=== PATIENT | male | born 1980 | race Caucasian/White ===

== ENCOUNTER 2018-07-05 02:10 | Outpatient (CLI) | payer OTHER | END 2018-07-05 02:11 | disposition critical access hospital (66) | LOC: EMS 02:10 | PROVIDERS: ATTEND Surgery | DX: M54.2 Cervicalgia (principal); M54.9 Dorsalgia, unspecified; V59.9XXA Occupant (driver) (passenger) of pick-up truck or van injured in unspecified traffic accident, initial encounter; Y92.413 State road as the place of occurrence of the external cause | CPT/HCPCS: A0425; A0429 ==

== ENCOUNTER 2018-07-05 02:29 | Emergency (ER) | payer OTHER ==
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
[2018-07-05 03:04] LABS: MUDS CUTOFF CONCENTRATIONS CUTOFF CONC BELOW:
[2018-07-05 03:05] LABS: BILIRUBIN,URINE NEGATIVE (NEGATIVE); GLUCOSE, URINE (UA) NEGATIVE (NEGATIVE); KETONES,URINE (UA) NEGATIVE (NEGATIVE); LEUKOCYTE ESTERASE, URINE NEGATIVE (NEGATIVE); NITRITE,URINE NEGATIVE (NEGATIVE); OCCULT BLOOD,URINE NEGATIVE (NEGATIVE); PROTEIN,URINE NEGATIVE (NEGATIVE); UROBILINOGEN,URINE 0.2 (NORMAL) E.U./dL (NORMAL)
[2018-07-05 03:06] LABS: CLARITY,URINE CLEAR (CLEAR)
[2018-07-05] MEDS ORDERED: OLANZapine 10 MG VIAL IM STA (03:06)
[2018-07-05 03:11] LABS: BASOPHILS # (AUTO) 0.6 10^3/uL (0.0-0.1); BASOPHILS % (AUTO) 6.9 %; EOSINOPHILS # (AUTO) 0.2 10^3/uL (0.0-0.7); EOSINOPHILS % (AUTO) 1.9 %; HGB - HEMOGLOBIN 16.3 g/dL (14.0-18.0); LYMPHOCYTES # (AUTO) 2.6 10^3/uL (1.5-3.5); LYMPHOCYTES % (AUTO) 31.5 %; MEAN CORPUSCULAR HEMOGLOBIN 30.7 pg (27.0-31.0); MEAN CORPUSCULAR HGB CONC 34.3 g/dL (32.0-36.0); MEAN CORPUSCULAR VOLUME 89.3 fL (80.0-94.0); MEAN PLATELET VOLUME 7.9 fL (7.4-11.4); MONOCYTES # (AUTO) 0.4 10^3/uL (0.0-1.0); MONOCYTES % (AUTO) 5.1 %; NEUTROPHILS # (AUTO) 4.5 10^3/uL (1.5-6.6); NEUTROPHILS % (AUTO) 54.6 %; PLT - PLATELET COUNT 253 10^3/uL (130-450); RED BLOOD COUNT 5.32 10^6/uL (4.70-6.10); RED CELL DISTRIBUTION WIDTH 13.5 % (12.0-15.0); WHITE BLOOD COUNT 8.2 x10^3/uL (4.8-10.8)
[2018-07-05 03:16] LABS: AMPHETAMINE SCREEN,URINE NEGATIVE (NEGATIVE); BENZODIAZEPINES SCREEN, URINE NEGATIVE (NEGATIVE); COCAINE SCREEN URINE NEGATIVE (NEGATIVE); METHADONE SCREEN, URINE NEGATIVE (NEGATIVE); METHAMPHETAMINES SCREEN, URINE NEGATIVE (NEGATIVE); OPIATE SCREEN, URINE NEGATIVE (NEGATIVE); OXYCODONE SCREEN, URINE NEGATIVE (NEGATIVE); PROPOXYPHENE SCREEN, URINE NEGATIVE (NEGATIVE); TRICYCLIC ANTIDEPRESSANT,URINE NEGATIVE (NEGATIVE)
[2018-07-05 03:20] LABS: ALBUMIN 4.7 g/dL (3.2-5.5); ALBUMIN/GLOBULIN RATIO 1.4 (1.0-2.2); BILIRUBIN,TOTAL 0.4 mg/dL (0.2-1.0); CALCIUM 9.1 mg/dL (8.5-10.3); TOTAL PROTEIN 8.1 g/dL (6.7-8.2)
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
[2018-07-05 05:41] VITALS: BP 126/78
== END 2018-07-05 05:52 | disposition home or self-care (01) ==
LOC: ED 02:29
DX: F10.120 Alcohol abuse with intoxication, uncomplicated (principal); M54.2 Cervicalgia; M54.9 Dorsalgia, unspecified; V49.9XXA Car occupant (driver) (passenger) injured in unspecified traffic accident, initial encounter
CPT/HCPCS: 36415; 51701; 70450; 72125; 80053; 80306; 80320; 81001; 81003; 83690; 85025; 87086; 96372; 99283; 99285

== ENCOUNTER 2022-02-10 23:26 | Outpatient (CLI) | payer SELFPAY | END 2022-02-10 23:59 | disposition critical access hospital (66) | LOC: EMS 23:26 | DX: R10.31 Right lower quadrant pain (principal) | CPT/HCPCS: A0425; A0427 ==

== ENCOUNTER 2022-02-10 23:41 | Emergency (ER) | payer SELFPAY ==
[2022-02-10 23:58] VITALS: BP 127/78
== END 2022-02-11 00:11 | disposition home or self-care (01) ==
LOC: EDUNIT# → ED 23:41
DX: Z53.8 Procedure and treatment not carried out for other reasons (principal)

== ENCOUNTER 2022-02-11 00:09 | Emergency (ER) | payer SELFPAY ==
[2022-02-11] MEDS ORDERED: KETOROLAC 30 MG/ML VIAL IVP STA (01:11)
[2022-02-11 01:48] LABS: BASOPHILS % (AUTO) 0.4 %; EOSINOPHILS % (AUTO) 0.2 %; HCT - HEMATOCRIT 43.1 % (42.0-52.0); HGB - HEMOGLOBIN 14.6 g/dL (14.0-18.0); LYMPHOCYTES # (AUTO) 0.3 10^3/uL (1.5-3.5); LYMPHOCYTES % (AUTO) 7.1 %; MEAN CORPUSCULAR HEMOGLOBIN 30.4 pg (27.0-31.0); MEAN CORPUSCULAR HGB CONC 33.9 g/dL (32.0-36.0); MEAN CORPUSCULAR VOLUME 89.6 fL (80.0-94.0); MEAN PLATELET VOLUME 9.8 fL (7.4-11.4); MONOCYTES # (AUTO) 0.3 10^3/uL (0.0-1.0); MONOCYTES % (AUTO) 6.9 %; NEUTROPHILS # (AUTO) 3.8 10^3/uL (1.5-6.6); NEUTROPHILS % (AUTO) 85.4 %; PLT - PLATELET COUNT 232 10^3/uL (130-450); RED BLOOD COUNT 4.81 10^6/uL (4.70-6.10); RED CELL DISTRIBUTION WIDTH 12.7 % (12.0-15.0); WHITE BLOOD COUNT 4.5 x10^3/uL (4.8-10.8)
--- NOTE | 2022-02-11 01:50 | ED Physician Documentation ---
PD HPI ABD PAIN - Stated complaint Stated Complaint: ABD PX - Chief complaint Chief Complaint: Abd Pain - History obtained from History obtained from: Patient - History of Present Illness Timing - onset: How many days ago (2) Timing - details: Gradual onset, Waxing and waning Pain level now: 6 Quality: Pain Location: All over / everywhere (predominantly RLQ) Radiation: Other (right groin) Improved by: Laying still Worsened by: Moving Associated symptoms: No: Fever, Nausea, Vomiting, Diarrhea, Constipation Similar symptoms before: Has not had sx before Recently seen: Not recently seen - Additional information Additional information: c/o 2 days of abdominal pain that is predominantly RLQ. He initially had relief with advil but the pain has steadily progressed in intensity and persistence, and he no longer is getting adequate relief with the ibuprofen. Denies h/o similar symptoms Review of Systems Constitutional: reports: Reviewed and negative Cardiac: reports: Reviewed and negative Respiratory: reports: Reviewed and negative GI: reports: Abdominal Pain. denies: Abdominal Swelling, Nausea, Vomiting, Constipation, Diarrhea : denies: Dysuria, Frequency, Hematuria Skin: reports: Reviewed and negative Musculoskeletal: reports: Reviewed and negative Neurologic: reports: Reviewed and negative PD PAST MEDICAL HISTORY - Past Medical History Past Medical History: No - Past Surgical History Past Surgical History: No - Present Medications Home Medications: Ambulatory Orders Medication Instructions Recorded Confirmed Home Medications Unobtainable 07/05/18 07/05/18 [HOME MEDICATIONS UNOBTAINABLE] - Allergies Allergies/Adverse Reactions: Allergies Allergy/AdvReac Type Severity Reaction Status Date / Time No Known Drug Allergies Allergy Verified 07/05/18 03:03 - Living Situation Living Arrangement: reports: At home - Social History Does the pt smoke?: Yes Smoking Status: Current every day smoker Does the pt drink ETOH?: Yes - Immunizations Immunizations: TDAP >10years/unknown - POLST Patient has POLST: No PD ED PE NORMAL - Vitals Vital signs reviewed: Yes - General General: Alert and oriented X 3, No acute distress, Well developed/nourished - Cardiac Cardiac: RRR, No murmur - Respiratory Respiratory: No respiratory distress, Clear bilaterally - Abdomen Abdomen: Soft, Non distended - Back Back: No CVA TTP - Derm Derm: Normal color, Warm and dry, No rash PD ED PE EXPANDED - Abdomen Abdomen: Tender to palpation, Periumbilical, RLQ. No: Rebound, Guarding Results - Vitals Vitals: Vital Signs - 24 hr 02/11/22 02/11/22 00:16 05:27 Temperature 36.9 C Heart Rate 114 H 99 Respiratory 20 16 Rate Blood Pressure 128/72 107/66 O2 Saturation 98 94 Oxygen O2 Source Room air - Labs Labs: Laboratory Tests 02/11/22 02/11/22 01:40 01:40 WBC 4.5 L RBC 4.81 Hgb 14.6 Hct 43.1 MCV 89.6 MCH 30.4 MCHC 33.9 RDW 12.7 Plt Count 232 MPV 9.8 Neut # (Auto) 3.8 Lymph # (Auto) 0.3 L [place] # (Auto) 0.3 Eos # (Auto) 0.0 Baso # (Auto) 0.0 Absolute Nucleated RBC 0.00 Nucleated RBC % 0.0 Sodium 135 Potassium 3.9 Chloride 104 Carbon Dioxide 22 Anion Gap 9.0 BUN 20 Creatinine 1.0 Estimated GFR (MDRD) 83 L Glucose 125 H Calcium 8.8 Total Bilirubin 1.1 H AST 21 ALT 23 Alkaline Phosphatase 90 Total Protein 7.0 Albumin 3.9 Globulin 3.1 Albumin/Globulin Ratio 1.3 Lipase 118 H - Rads (name of study) CT A/P Radiology: Prelim report reviewed, See rad report PD MEDICAL DECISION MAKING - ED course Complexity details: reviewed results, re-evaluated patient, considered differential, d/w patient ED course: CT A/P was done at 2:20 AM , radiologist's reading at 5:01 AM and the findings are c/w acute appendicitis. I reevaluated patient at that time. He is asleep but awakens to voice, c/o worsening pain. Results d/w patient. Unfortunately, general surgical services are not available at [facility] until 02/13/22. , [facility], [facility] all have no beds available. [facility] says they anticipate discharges later this morning. Care of patient turned over to oncoming ED physician at end of my shift pending bed availability at appropriate facility. He had relief of his pain with toradol shortly after my initial evaluation, but on reevaluation after CT results available, he says the pain has worsened and he is given 4mg IV morphine. IV NS maintenance fluids (150 ml/hr) started and he is given IV zosyn. Departure - Departure Clinical Impression: Appendicitis Qualifiers: Appendicitis type: acute appendicitis Acute appendicitis type: with localized peritonitis Appendicitis gangrene presence: without gangrene Appendicitis perforation presence: without perforation Appendicitis abscess presence: without abscess Qualified Code(s): K35.30 - Acute appendicitis with localized peritonitis, without perforation or gangrene Condition: Stable
[2022-02-11 02:00] LABS: ALBUMIN 3.9 g/dL (3.2-5.5); ALBUMIN/GLOBULIN RATIO 1.3 (1.0-2.2); BILIRUBIN,TOTAL 1.1 mg/dL (0.2-1.0); CALCIUM 8.8 mg/dL (8.5-10.3); POTASSIUM 3.9 mmol/L (3.5-5.0)
[2022-02-11] MEDS ORDERED: PIPERACILLIN/TAZOBACTAM 3.375 GM in SODIUM CHLORIDE 0.9% MINIBAG 100 ML IV STA (05:29)
[2022-02-11] MEDS ORDERED: MORPHINE 2 MG/ML CARPUJECT IVP STA ×3 (05:29→19:52)
[2022-02-11] MEDS ORDERED: SODIUM CHLORIDE 0.9% 1,000 ML IV STA ×2 (05:29→16:35)
--- NOTE | 2022-02-11 08:52 | CT Report ---
PROCEDURE: Abdomen/Pelvis WO INDICATIONS: abdominal pain, predominantly right-sided TECHNIQUE: Noncontrast 5 mm thick sections acquired from the diaphragms to the symphysis. 5 mm coronal and sagi ttal reformats were then performed. For radiation dose reduction, the following was used: automated exposure control, adjustment of mA and/or kV according to patient size. COMPARISON: None. FINDINGS: Image quality: Excellent. ABDOMEN: Lung bases: Respiratory motion at the lung bases. Mild bibasilar atelectatic changes. No effusions. H eart size is normal. Solid organs: Liver and spleen are normal in size. Gallbladder appears normal without contrast. Pa ncreas is normal in contours. No adrenal nodules. Kidneys are normal in size, without hydronephrosi s. Punctate nonobstructing right lower pole nephrolithiasis. Peritoneum and bowel: There are focal inflammatory changes in the right lower quadrant including a p hlegmonous right lower quadrant mass, indistinct appendix contours, 2 hyperdense appendicoliths, thic kening of the right paracolic gutter fascia. The adjacent terminal and distal ileum is fluid-filled a nd dilated. There is a small amount of unencapsulated free fluid in the pelvis and in the paracolic gutter. Mildly prominent and mildly hyperemic fluid-filled pelvic bowel loops also seen in the left l ower quadrant. Stomach and bowel loops are otherwise normal. No free intraperitoneal air. Nodes and vessels: Right lower quadrant mesenteric lymph nodes. No pathologic or bulky retroperitonea l or mesenteric adenopathy. Aorta and inferior vena cava are normal in caliber. Miscellaneous: No ventral hernias. PELVIS: Genitourinary: Urinary bladder is decompressed. Prostate gland is normal size. Miscellaneous: No inguinal hernias or adenopathy. Bones: No suspicious bony lesions. No vertebral body compression fractures. IMPRESSION: 1. Findings consistent with acute ruptured appendicitis without focal drainable abscess. 2. Adjacent small bowel ileus. 3. Nonobstructing right lower pole nephrolithiasis. 4. Final interpretation is concordant with preliminary report. Reviewed by: Deisy Santos MD on 02/11/2022 8:51 AM PDT Approved by: Deisy Santos MD on 02/11/2022 8:51 AM PDT Station ID: [id number]
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
[2022-02-11 20:05] VITALS: BP 126/83
== END 2022-02-11 20:14 | disposition short-term general hospital (02) ==
LOC: ED 00:09
DX: K35.30 Acute appendicitis with localized peritonitis, without perforation or gangrene (principal); F17.200 Nicotine dependence, unspecified, uncomplicated; Z20.822 Contact with and (suspected) exposure to COVID-19
CPT/HCPCS: 36415; 80053; 83690; 85025; 96361; 96365; 96375; 96376; 99284

== ENCOUNTER 2022-02-11 20:18 | Outpatient (CLI) | payer SELFPAY | END 2022-02-11 20:19 | disposition short-term general hospital (02) | LOC: EMS 20:18 | PROVIDERS: ATTEND Student in an Organized Health Care Education/Training Program | DX: K35.32 Acute appendicitis with perforation, localized peritonitis, and gangrene, without abscess (principal) | CPT/HCPCS: A0425; A0426 ==